=== PATIENT | male | born 1950 | race Caucasian/White ===

== ENCOUNTER 2019-06-21 06:32 | Day surgery (SDC) | payer MEDICARE, OTHER ==
[2019-06-21] MEDS ORDERED: Midazolam 1 MG/ML 2 ML SDV IV ONE ×5 (06:33→08:05)
[2019-06-21] MEDS ORDERED: fentaNYL 100 MCG/2 ML SDV IV ONE ×3 (06:33→08:05)
[2019-06-21] MEDS ORDERED: Dextrose 5%-0.45% NaCl 1,000 ML IV SCH (07:30)
[2019-06-21] MEDS ORDERED: fentaNYL 100 MCG/2 ML SDV ONE (07:46)
[2019-06-21] MEDS ORDERED: Midazolam 1 MG/ML 2 ML SDV ONE (07:46)
--- NOTE | 2019-06-21 12:00 | OR ---
DATE: 06/21/2019 PREOPERATIVE DIAGNOSIS: Screening colonoscopy. POSTOPERATIVE DIAGNOSIS: Screening colonoscopy. PROCEDURE: Total colonoscopy. ANESTHESIA: Conscious sedation with IV Versed and fentanyl. SPECIMEN: None. OPERATIVE FINDINGS: A few scattered diverticula throughout the colon, it should be of no consequence, however. RECOMMENDATION: Followup screening colonoscopy in 10 years, sooner for symptoms. INDICATION FOR PROCEDURE: This 68-year-old male presents for screening colonoscopy. PROCEDURE IN DETAIL: After adequate preparation, a colonoscope was inserted into the rectum. This was easily passed all the way to the cecum. Confirmation of the cecum was made by visualization of the ileocecal valve, the appendiceal opening, and palpation in the right lower quadrant. The bowel prep was very good. On withdrawal of the scope, a good examination of the colon was accomplished. The patient has no masses, polyps, bleeding sites, colitis, but does have a few scattered diverticula throughout the colon, not too significant in number, however. The anal and rectal examinations are also normal. Air was suctioned from the colon, and the scope removed. [facility] /[id number]
[2019-06-21 12:10] VITALS: BP 130/78; PULSE 59
== END 2019-06-21 09:55 | disposition home or self-care (01) ==
LOC: DL.ENDO 06:32
PROVIDERS: ATTEND Surgery
DX: K57.30 Diverticulosis of large intestine without perforation or abscess without bleeding (principal); K59.00 Constipation, unspecified; Z86.010 Personal history of colon polyps; Z86.711 Personal history of pulmonary embolism; Z83.71 Family history of colonic polyps; Z79.899 Other long term (current) drug therapy
CPT/HCPCS: 45378; J2250; J3010; J7042; G0121